=== PATIENT | male | born 1960 | race Caucasian/White ===

== ENCOUNTER 2022-02-18 10:15 | Outpatient (AMB) | payer BC, SELFPAY ==
[2022-02-18 10:40] VITALS: BP 149/71; PULSE 75; TEMP 37; BMI 32.7
--- NOTE | 2022-02-18 10:40 | UROVISIT ---
Intake Vital Signs 02/18/22 10:40 Height 1.75 m Height Method Stated Weight 100.471 kg Weight Measurement Method Standing Scale BMI 32.7 Temp 98.6 F Temp Source Temporal Artery Scan Pulse 75 Pulse Source Monitor BP 149/71 H Blood Pressure Source Automatic Cuff Blood Pressure Location Left Upper Arm Position Sitting Intake Visit Reasons: Uro Follow Up 6 Month Tape Coater Required: No Accompanied by: Self / Same As Patient Is patient in pain?: No Allergy Allergies No Known Allergies Allergy (Verified 02/18/22 10:41) Home Meds Medication Reconciliation amlodipine 5 mg-benazepril 10 mg capsule 1 cap PO QDAY 06/19/20 [History Confirmed 02/18/22] atorvastatin 20 mg tablet 20 mg PO QDAY 06/19/20 [History Confirmed 02/18/22] metformin 500 mg tablet 500 mg PO QDAY 06/19/20 [History Confirmed 02/18/22] metformin 500 mg tablet,extended release 24 hr 500 mg PO QDAY 06/19/20 [History Confirmed 02/18/22] Nurse Note: Patient to be scheduled for CT urogram with contrast and follow up in 6 months. Patient given lab slip to have PSA and basic metabolic panel done. mvp Fall Screening Do you have a fear of falling?: No Have you had a fall in the last 2 months?: No Do you use an assistive device for ambulation?: No Current Vital Signs Height Height Method Weight Weight Measurement Method Body Mass Index Temperature Temperature Source 1.75 m Stated 100.471 kg Standing Scale 32.7 98.6 F Temporal Artery Scan 02/18/22 10:40 02/18/22 10:40 02/18/22 10:40 02/18/22 10:40 02/18/22 10:40 02/18/22 10:40 02/18/22 10:40 Pulse Rate Pulse Source Blood Pressure Blood Pressure Source Blood Pressure Location Blood Pressure Position 75 Monitor 149/71 H Automatic Cuff Left Upper Arm Sitting 02/18/22 10:40 02/18/22 10:40 02/18/22 10:40 02/18/22 10:40 02/18/22 10:40 02/18/22 10:40 Office Procedures Uro Level of Care Nursing/Assessment/Reassessment Patient Status: Established Patient Nursing Assessment/Reassessment: Update [facility] data in EMR, Vital Signs and Medication Reconciliation Coordination of Care: Simp Pt/Fam Ed for care and Ref for ancillary service Established Patient Point Assignment: 65 Established Patient Point Charge: EP Level 2 (40-75) Procedure IM Injection: No Transrectal Ultrasound: No Urology Clinic Office Visit Office Visit Date of visit:: February 18, 2022 10:15 Allergies & Home Medications: Allergies No Known Allergies Allergy (Verified 08/13/21 11:03) Visit: Reason for visit: [] Office Visit findings: []
--- NOTE | 2022-02-21 09:21 | ESPR_ITS ---
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 Diabetes mellitus. Hypertension. Coronary artery disease/cardiac arrhythmias. Traumatic scalp, status post brain surgery three years ago. HISTORY OF PRESENT ILLNESS: Mr. El is a 61-year-old gentleman. The patient had a radical cystoprostatectomy and ileal loop diversion done in 2013 for muscle invasive bladder cancer. I do not have the pathology report on the patient and because of HIPPA reason, he did not want me to call the other urologist. The patient has no loss of weight or appetite. No urinary problem. No gross hematuria. The patient had a CAT scan of the abdomen and pelvis done six months ago, it was reviewed by me. This revealed: Stable 1.4 cm left adrenal nodule. 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 No hydronephrosis. Intrarenal abdominal aortic aneurysm 3.9 cm, being followed by PCP. PHYSICAL EXAMINATION: General: Condition is satisfactory. Orientation x3. Vital Signs: Stable. They are in HPI, in EMR. HEENT: Normocephalic, atraumatic. Eyes: No anemia or jaundice. Neck: Supple. Trachea is central. Thyroid is not enlarged. Chest: Symmetrical. Heart: Regular rate and rhythm. Abdomen: No masses. Liver, spleen, kidney not palpable. No CVA tenderness. Extremities: Revealed no edema, cyanosis, or clubbing. RECOMMENDATION: PSA, CAT scan of the abdomen and pelvis in six months. Reappointment in six months. Followup with Dr. Davies for diabetes and hypertension. DT: 11:45:35 TT: 13:16:00 Ref: - TID: [id number] MTDD
== END 2022-02-18 11:28 | disposition home or self-care (01) ==
LOC: HODURO 10:15
PROVIDERS: PCP Internal Medicine; Visit Provider Urology

== ENCOUNTER → 2024-08-19 | Outpatient (BNVA) | payer MEDICARE, SELFPAY | END | disposition home or self-care (01) | PROVIDERS: PCP Hospitalist; Referring Provider Hospitalist; Visit Provider Urology | DX: C67.9 Malignant neoplasm of bladder, unspecified (principal); I10 Essential (primary) hypertension; I25.10 Atherosclerotic heart disease of native coronary artery without angina pectoris; E11.9 Type 2 diabetes mellitus without complications; Z87.891 Personal history of nicotine dependence | CPT/HCPCS: 99212; G0463 ==

== ENCOUNTER → 2025-08-19 | Outpatient (BNVA) | payer MEDICARE, SELFPAY | END | disposition home or self-care (01) | PROVIDERS: PCP Hospitalist; Referring Provider Hospitalist; Visit Provider Urology | DX: C67.9 Malignant neoplasm of bladder, unspecified (principal); E11.9 Type 2 diabetes mellitus without complications; I10 Essential (primary) hypertension; I25.10 Atherosclerotic heart disease of native coronary artery without angina pectoris; Z87.891 Personal history of nicotine dependence | CPT/HCPCS: 99212; G0463 ==